=== PATIENT | male | born 1955 | race Caucasian/White ===

== ENCOUNTER 2025-05-01 16:03 | Emergency (ER) | payer MEDICARE, MEDICAID, SELFPAY ==
[2025-05-01 16:52] VITALS: BP 144/76; PULSE 85; RESP 20; TEMP 36.8; O2SAT 95; BMI 28.1
[2025-05-01 18:49] VITALS: BP 145/83; PULSE 75; RESP 18; TEMP 36.9; O2SAT 95
--- NOTE | 2025-05-01 19:56 | EDNOTE_ITS ---
<Statement entered by Ladonna Almonte MD - 05/01/25 22:22> As co-signing physician, I was present and available for consult prn. I concur with the plan and care as documented by the midlevel provider. ED Skin Abcess FB-RME/HPI General Chief complaint: General Adult/Misc Complain Stated complaint: INSECT BITE L) CHEST FEELS LIKE BROKEN GLASS Time Seen by Provider: 05/01/25 19:40 Arrival date/time: 05/01/25 16:03 69M with history of drug use presents to ED with insect bite on L chest today. It was painful earlier, but is better now. Limitations: no limitations Related Data Home Medications ?Medication ?Instructions ?Recorded ?Confirmed albuterol sulfate 90 mcg/actuation 1 inh inhalation .p rn 01/27/23 01/27/23 aerosol inhaler Previous Rx's ?Medication ?Instructions ?Recorded ondansetron 4 mg disintegrating 4 mg PO Q12H PRN nause a and 05/07/23 tablet vomiting #4 tabs Allergies Allergy/AdvReac Type Severity Reaction Status Date / Time Sulfa (Sulfonamide Allergy Severe Rash Verified 05/01/25 16:07 Antibiotics) Review of Systems Review of Systems Systems Reviewed: All systems reviewed, normal except as documented Constitutional Constitutional: Reports system reviewed and no additional complaints, except as documented, Denies fever(s) and Denies headache(s) ENT Ears, Nose, Mouth, and Throat: Denies disequilibrium and Denies headache(s) Cardiovascular Cardiovascular: Reports system reviewed and no additional complaints, except as documented, Denies chest pain and Denies dyspnea Respiratory Respiratory: Reports system reviewed and no additional complaints, except as documented, Denies cough and Denies dyspnea Gastrointestinal Gastrointestinal: Reports system reviewed and no additional complaints, except as documented, Denies abdominal pain, Denies nausea and Denies vomiting Integumentary/Breasts Skin/Breast: Reports as per HPI and Reports skin pain Neurologic Neurologic: Reports system reviewed and no additional complaints, except as documented, Denies confusion, Denies disequilibrium and Denies headache(s) Psychiatric Psychiatric: Denies confusion Past Medical History Past Medical History NEUROLOGIC: Positive Neurological Disorders and Traumatic Brain Injury CARDIAC: Negative Cardiac Disorders or Congestive Heart Failure RESPIRATORY: Positive Asthma and Emphysema; Negative Chronic Obstructive Pulmonary Disease (COPD) GASTROINTESTINAL: Negative Gastrointestinal Disorders GENITOURINARY: Positive Genitourinary Disorders and Benign Prostatic Hyperplasia; Negative Renal Disease ENDOCRINE: Negative Endocrine Disorders (CIRRHOSIS, HEPATITIS), Diabetes Mellitus Type 1 or Diabetes Mellitus Type 2 PSYCHO/SOCIAL: Positive Schizophrenia, Depression and Post Traumatic Stress Disorder OTHER HISTORY: Negative Autoimmune Disease Social History SMOKING STATUS: Former smoker ED Exam General Limitations: Present no limitations General appearance: Present alert and in no apparent distress Head Head exam: Present atraumatic Eye Eye exam: Present normal appearance, PERRL and EOMI ENT ENT exam: Present normal exam, normal oropharynx and mucous membranes moist Neck Neck exam: Present normal inspection, full ROM and trachea midline Chest Chest inspection: Present symmetric chest wall rise and other (L insect bite) Respiratory Respiratory exam: Present normal lung sounds bilaterally Cardiovascular Cardiovascular exam: Present regular rate, normal rhythm and normal heart sounds Abdominal Exam Abdominal exam: Present soft and normal bowel sounds Extremities Exam Extremities exam: Present normal inspection and full ROM Back Exam Back exam: Present normal inspection and full ROM Neurological Exam Neurological exam: Present alert, oriented X3 and CN II-XII intact Psychiatric Psychiatric exam: Present normal affect and normal mood Skin Skin exam: Present warm, dry, intact and normal color Course Quality Measures none Orders Category Date Time Status Wound Care NOW Care 05/01/25 19:41 Active Naproxen [Naprosyn] Med 05/01/25 19:41 Discontinued 500 mg PO X1 ONE Vital Signs Vital signs: Vital Signs Temperature 98.2 F 05/01/25 16:52 Pulse Rate 85 05/01/25 16:52 Respiratory Rate 20 05/01/25 16:52 Blood Pressure 144/76 H 05/01/25 16:52 Pulse Oximetry (%) 95 05/01/25 16:52 Oxygen Delivery Method Room Air 05/01/25 16:52 O2 at 95% on RA and WNLs Skin / Abscess / Foreign Body MDM Narrative MDM Narrative:: 69M with history of drug use presents to ED with insect bite on L chest today. It was painful earlier, but is better now. Physical exam reveals small blister (popped) on L chest). Patient is afebrile, calm, and alert. Wound cleaned/irrigated and bandaged. Meds and hiv counselor given. Patient data External records reviewed:: [facility] previous records Clinical information provided by:: patient Social determinants that could affect healthcare access:: substance use Patient has the following chronic illnesses:: none How is presenting disease/condition affected by chronic disease/condition?: no chronic disease Evaluation data The following diagnostics were reviewed and interpreted by me:: other (specify) (none) Lab and/or radiology exams considered but not ordered:: not ordered Interpretation Summary: n/a Medications / Prescriptions Medications or Prescriptions considered but not ordered:: ordered Medication administrations:: Medication Administration History Discontinued Medications Naproxen (Naproxen 250 Mg Tablet) 500 mg PO X1 ONE Stop: 05/01/25 19:42 above Consultations Consultation(s) initiated? (list below): No Diagnosis Skin/Abscess Differential Diagnosis: abscess of skin or subcutaneous tissue, viral exanthem, dermatophytosis, urticaria, herpes zoster, allergic reaction to drug, cellulitis, eczema, insect bites, impetigo and contact dermatitis Most likely diagnosis given after review of the tests above:: insect bite Admission Indicated Admission indicated?: not indicated Admission Request Was there a request for admission?: No Disposition Plan Disposition Plan: Discharge Discharge Attestation Discharge Attestation: The patient and all family members were given an opportunity to ask questions and understood the discharge instructions. Discharge instructions specifically effects, indications for sooner follow up or return to the emergency department, and the expected course of current diagnosis. Patient condition: Stable Discharge Plan Plan Patient Disposition: HOME (Self Care) Discharge Disposition comment: Stable Prescriptions/Referrals Prescriptions/Med Rec: No Action albuterol sulfate 90 mcg/actuation HFA aerosol inhaler 1 inh inhalation .prn ondansetron 4 mg tablet,disintegrating 4 mg PO Q12H PRN (Reason: nausea and vomiting) Qty: 4 0RF Problem List Clinical Impression: Insect bite Patient/Caregiver Discharge Instructions Education Materials: ED Insect Sting, Local Reaction Additional Instructions: Please follow-up with PCP within 24-48 hours and return immediately if symptoms worsen. Print Language: Faroese Stand Alone Forms: Patient Portal Info Letter SAMANTA/RICO Supervising Physician SAMATNA/RICO Supervising Physician: Dr. Almonte
[2025-05-01] MEDS: NAPROXEN 250 MG TABLET 500 MG PO (19:58)
== END 2025-05-01 20:06 | disposition home or self-care (01) ==
LOC: SERX 20:07
PROVIDERS: Emergency Provider Emergency Medicine
DX: S20.362A Insect bite (nonvenomous) of left front wall of thorax, initial encounter (principal); W57.XXXA Bitten or stung by nonvenomous insect and other nonvenomous arthropods, initial encounter
CPT/HCPCS: 99283; A9270